=== PATIENT | male | born 1970 | race Caucasian/White ===

== ENCOUNTER 2016-11-22 13:52 | Emergency (ER) | payer OTHER ==
[~2016-11-22] VITALS: Ht 185.4 cm; Wt 96.6 kg
[~2016-11-22 13:52] MED LIST: ASPI-807 PO; DIAZ10TA4 PO; FENO145T PO; LOVA40TA2 PO; METH10SO PO; MONT10TA22 PO; NIFE30TA26 PO
--- NOTE | 2016-11-22 14:17 | NUR ---
Pt groin pain x 2 weeks, unknown etiology. Gowned pt. Comfort measures. Awaiting md order
--- NOTE | 2016-11-22 14:33 | NUR ---
PT TAKEN TO CT VIA WC
--- NOTE | 2016-11-22 15:44 | NUR ---
Patient discharged to home in stable condition. Written and verbal after care instructions given. Patient verbalizes understanding of instruction.
[2016-11-22 15:45] VITALS: BP 145/83
== END 2016-11-22 15:45 | disposition home or self-care (01) ==
LOC: ER 13:54
DX: R59.1 Generalized enlarged lymph nodes (principal); R10.30 Lower abdominal pain, unspecified; I10 Essential (primary) hypertension; J45.909 Unspecified asthma, uncomplicated; F17.200 Nicotine dependence, unspecified, uncomplicated; Z87.442 Personal history of urinary calculi; Z79.82 Long term (current) use of aspirin; Z98.1 Arthrodesis status
CPT/HCPCS: 72192; 99284; A4606; Z7610

== ENCOUNTER 2016-11-30 13:33 | Emergency (ER) | payer OTHER ==
[~2016-11-30] VITALS: Ht 185.4 cm; Wt 95.3 kg
--- NOTE | 2016-11-30 13:50 | NUR ---
CT of the groin done last week showing: IMPRESSION: 1. There are bilateral inguinal lymph nodes but no evidence of an inguinal hernia. There is some stranding as that there is a suggestion of mild stranding in the fat adjacent to the lymph nodes in the right mid inguinal canals but no evidence of a inguinal hernia. A mild lymphadenitis/panniculitis could be considered. No inguinal hernia is identified. 2. Status post posterior spinal fusion with bilateral laminectomies at L5 and S1. 3. Constipation. 4. Atherosclerotic vascular disease. RPTAT:AAJJ
[2016-11-30 14:32] LABS: BASOPHILS # (AUTO) 0.1 /CMM (0.0-0.2); BASOPHILS % (AUTO) 0.8 % (0.0-2.0); EOSINOPHILS # (AUTO) 0.1 /CMM (0.0-0.7); EOSINOPHILS % (AUTO) 1.6 % (0.0-6.0); HEMATOCRIT 43 % (39-51); HEMOGLOBIN 14.3 g/dL (13.5-17.5); LYMPHOCYTES % (AUTO) 35.8 % (20.0-44.0); MEAN CORPUSCULAR HEMOGLOBIN 28 PG (26.0-33.0); MEAN CORPUSCULAR HGB CONC 33 g/dl (31.0-36.0); MEAN CORPUSCULAR VOLUME 85 fL (80-96); MONOCYTES # (AUTO) 0.8 /CMM (0.1-1.30); MONOCYTES % (AUTO) 9.5 % (2.0-12.0); NEUTROPHILS # (AUTO) 4.5 /CMM (1.8-8.9); NEUTROPHILS % (AUTO) 52.3 % (43.0-81.0); PLATELET COUNT (AUTO) 366 /CMM (150-450); RDW COEFFICIENT OF VARIATION 12.2 (11.5-15.0); RED BLOOD CELL COUNT(AUTO) 5.05 MIL/uL (4.5-6.0); WHITE BLOOD COUNT (AUTO) 8.5 K/uL (4.3-11.0)
[2016-11-30 14:47] LABS: ALBUMIN 3.8 g/dL (3.4-5.0); BILIRUBIN,DIRECT 0.1 mg/dL (0.0-0.2); BILIRUBIN,TOTAL 0.3 mg/dL (0.2-1.0); CALCIUM, SERUM 9.3 mg/dL (8.5-10.1); CREATININE 1.2 mg/dL (0.6-1.3); POTASSIUM 4.3 mmol/L (3.5-5.1)
[2016-11-30 14:58] LABS: APPEARANCE,URINE Slightly Cloudy (CLEAR); BILIRUBIN,URINE SMALL (NEGATIVE); BLOOD, URINE Negative Ery/uL (NEGATIVE); COLOR,URINE Dark (YELLOW); KETONES,URINE Trace (NEGATIVE); LEUKOCYTE ESTERASE ,URINE Negative (NEGATIVE); NITRITE, URINE Negative (NEGATIVE); PH,URINE 5.5 (5.0-8.0); PROTEIN,URINE Negative (NEGATIVE); UGLUCOSE Negative (NEGATIVE); UROBILINOGEN,URINE 0.2 EU/dL (0.2)
[2016-11-30 15:04] LABS: BACTERIA,URINE None seen /HPF (None Seen); RBC,URINE NONE SEEN /HPF (0-2); SQUAMOUS EPITHELIAL CELL,UR Rare /HPF (None Seen); WBC,URINE 0-2 /HPF (0-3)
[2016-11-30 15:07] LABS: TOTAL PROTEIN, SERUM 7.7 g/dL (6.4-8.2)
--- NOTE | 2016-11-30 16:40 | NUR ---
Patient discharged to home in stable condition. Written and verbal after care instructions given. Patient verbalizes understanding of instruction.
[2016-11-30 16:42] VITALS: BP 140/80
== END 2016-11-30 16:43 | disposition home or self-care (01) ==
LOC: ER 13:34
DX: R59.1 Generalized enlarged lymph nodes (principal); M25.551 Pain in right hip; I10 Essential (primary) hypertension; J45.909 Unspecified asthma, uncomplicated; Z79.82 Long term (current) use of aspirin; G89.29 Other chronic pain; F17.200 Nicotine dependence, unspecified, uncomplicated; Z98.890 Other specified postprocedural states; Z87.442 Personal history of urinary calculi
CPT/HCPCS: 36415; 71010; 80048; 80076; 81001; 85025; 99285; 99406; A4606; Z7610; 81000-TC

== ENCOUNTER 2020-04-23 15:20 | Emergency (ER) | payer OTHER ==
[~2020-04-23] VITALS: Ht 185.4 cm; Wt 94.3 kg
[2020-04-23 15:20] VITALS: BP 129/82
--- NOTE | 2020-04-23 16:04 | NUR ---
RAPID STREP DONE & SENT TO LAB.
== END 2020-04-23 17:00 | disposition home or self-care (01) ==
LOC: ER 15:25
DX: J02.9 Acute pharyngitis, unspecified (principal); I10 Essential (primary) hypertension; J45.909 Unspecified asthma, uncomplicated; G89.29 Other chronic pain; M54.9 Dorsalgia, unspecified; J34.89 Other specified disorders of nose and nasal sinuses; Z87.442 Personal history of urinary calculi; Z90.89 Acquired absence of other organs; Z98.890 Other specified postprocedural states; Z79.899 Other long term (current) drug therapy; Z79.82 Long term (current) use of aspirin
CPT/HCPCS: 86403-TC; 87070-TC

== ENCOUNTER 2021-05-21 13:20 | Emergency (ER) | payer OTHER ==
[~2021-05-21] VITALS: Ht 185.4 cm; Wt 72.6 kg
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
[2021-05-21] MEDS ORDERED: ETOMIDATE 2 MG/ML VIAL IV ONE ×2 (13:24→15:30)
[2021-05-21] MEDS ORDERED: SUCCINYLCHOLINE CHLORIDE 20 MG/ML VIAL IV ONE ×2 (13:24→15:30)
[2021-05-21] MEDS ORDERED: NALOXONE PREFILLED SYRINGE 2 MG/2 ML SYRINGE ONE (13:41)
--- NOTE | 2021-05-21 13:45 | NUR ---
RAC #18G S/L & LAC #18G S/L BLOOD COLLECTED AND GIVEN TO LAB
--- NOTE | 2021-05-21 13:48 | NUR ---
F/C 16 INSERTED WITH YELLOW URINE RETURN; PATENT AND INTACT. URINE COLLECTED AND SENT TO LAB
[2021-05-21] MEDS ORDERED: ONDANSETRON HCL/PF 4 MG/2 ML VIAL ONE (13:51)
--- NOTE | 2021-05-21 14:00 | NUR ---
Olga Lidia castro in EDM - 05/21/21 at 1646 by REBECCA PER VERBAL ORDERS FROM LOLA UMANZOR ADMINISTERED: 1456 ATENODINE 10MG 1456 SUCCINATED 140MG LOLA UMANZOR INTUBATED PT 6CM 27 AT LIP. PT TOLERATED PROCEDURE WELL.
--- NOTE | 2021-05-21 14:00 | NUR ---
PT INTUBATED NOEMI DAVILA MD WITH 6.0 ETT; BILATERAL B/S NOTED. POSITIVE COLOR CHANGE ON CAPNOMETER. PATIENT PLACED ON MECHANICAL VENT. SETTINGS PER MD. ALARMS VERIFIED AND AUDIBLE. AMBU BAG AT [facility].
--- NOTE | 2021-05-21 14:00 | NUR ---
PER VERBAL ORDERS FROM LOLA UMANZOR ADMINISTERED: 1456 ETOMIDATE 10MG 1456 SUCCYLCHOLINE CHLORIDE 140MG LOLA UMANZOR INTUBATED PT 6CM 27 AT LIP. PT TOLERATED PROCEDURE WELL.
--- NOTE | 2021-05-21 14:00 | NUR ---
RT NOTE- PATIENT ORALLY INTUBATED BY WITH 6.0 ETT SECURED AT 25 CM MID LIP LINE. BILATERAL B/S NOTED. POSITIVE COLOR CHANGE ON CAPNOMETER. PATIENT PLACED ON MECHANICAL VENT. SETTINGS PER MD. ALARMS VERIFIED AND AUDIBLE. AMBU BAG AT [facility].
--- NOTE | 2021-05-21 14:04 | NUR ---
6.0 ETT ADVANCED FROM 25 CM TO 27 CM MID LIP LINE PER .
--- NOTE | 2021-05-21 14:05 | NUR ---
LOADING MACHINE ADJUSTER AT BEDSIDE FOR POST INTUBATION XRAY.
--- NOTE | 2021-05-21 14:06 | NUR ---
INTUBATION PLACEMENT CONFIRMED VIA XRAY; LOLA UMANZOR AWARE. PT TOLERATING VENT SETTINGS AT SPO2 99% : PEEP 5 TV 500 FIO2 100%
[2021-05-21] MEDS: PROPOFOL 100 ML IV PRN ×7 (14:10→18:55)
[2021-05-21] MEDS ORDERED: PROPOFOL 100 ML ONE ×3 (14:11→20:34)
[2021-05-21] MEDS ORDERED: LINA145C PO (14:26)
[2021-05-21] MEDS ORDERED: ONDANSETRON HCL/PF - ER 4 MG/2 ML VIAL IV ONE (14:30)
[2021-05-21] MEDS ORDERED: NALOXONE PREFILLED SYRINGE 2 MG/2 ML SYRINGE IV ONE (14:30)
--- NOTE | 2021-05-21 15:12 | NUR ---
COVID ANTIGEN SWAB COLLECTED AND SENT TO LAB
[2021-05-21 15:17] LABS: MEAN CORPUSCULAR HGB CONC 31 g/dl (31.0-36.0); MONOCYTES # (AUTO) 1.4 K/uL (0.1-1.30)
[2021-05-21 15:25] LABS: CREATININE 0.9 mg/dL (0.6-1.3); POTASSIUM 4.5 mmol/L (3.5-5.1)
[2021-05-21 15:28] LABS: BASOPHILS # (AUTO) 0.1 K/uL (0.0-0.2); BASOPHILS % (AUTO) 0.4 % (0.0-2.0); HEMATOCRIT 46 % (39-51); HEMOGLOBIN 14.5 g/dL (13.5-17.5); LYMPHOCYTES # (AUTO) 2.2 K/uL (0.8-4.8); LYMPHOCYTES % (AUTO) 9.3 % (20.0-44.0); MEAN CORPUSCULAR VOLUME 85 fL (80-96); MONOCYTES % (AUTO) 6.2 % (2.0-12.0); NEUTROPHILS # (AUTO) 19.6 K/uL (1.8-8.9); NEUTROPHILS % (AUTO) 84.1 % (43.0-81.0); PLATELET COUNT (AUTO) 343 K/uL (150-450); RED BLOOD CELL COUNT(AUTO) 5.45 MIL/uL (4.5-6.0); WHITE BLOOD COUNT (AUTO) 23.3 K/uL (4.3-11.0)
[2021-05-21 15:30] LABS: ALBUMIN 3.8 g/dL (3.4-5.0); BILIRUBIN,DIRECT 0.1 mg/dL (0.0-0.2); BILIRUBIN,TOTAL 0.2 mg/dL (0.2-1.0); TOTAL PROTEIN, SERUM 8.3 g/dL (6.4-8.2)
--- NOTE | 2021-05-21 15:50 | NUR ---
LOLA UMANZOR GAVE VERBAL ORDER FOR NGT. PLACED 18FR NGT TO R NARE AT 75CM. AUSCULTATION AND ASPIRATION POSITIVE PLACEMENT CHECK. BROWN OUTPUT NOTED. ORDERED KUB XRAY FOR PLACEMENT
[2021-05-21] MEDS ORDERED: PIPERACILLIN /TAZOBACTAM 3.375 G in IV D5W 50 ML IV ONE (16:00)
--- NOTE | 2021-05-21 16:03 | NUR ---
ABG RESULTED. RT CHANGED VENT SETTINGS FROM FIO2 100% TO 85%. PT TOLERATING WELL AT 100%. DARIAN UMANZOR AWARE
[2021-05-21 16:04] LABS: ABG BASE EXCESS 5.7 mmol/L; ABG PCO2 41.2 mmHg (35.0-45.0); ABG PH 7.476 (7.350-7.450); ABG PO2 189.9 mmHg (75.0-100.0); COHb 2.7 % (0.5-1.5); MetHb 0.4 % (0.0-1.5); O2Hb 96.2 % (94.0-97.0); PEEP,BG 5 cm H2O; SITE, ABG Right Radial; VT, ABG 500 mL
--- NOTE | 2021-05-21 16:05 | NUR ---
SCHOOL CUSTODIAN AT PT'S BEDSIDE
[2021-05-21] MEDS ORDERED: IOHEXOL-300 100 ML VIAL IV ONE (16:13)
[2021-05-21] MEDS ORDERED: IV NS 0.9% 250 ML IV ONE (16:14)
[2021-05-21] MEDS ORDERED: CT SWABBABLE VALVE TRANS SET 1 EA INFUS.SET MC ONE (16:14)
--- NOTE | 2021-05-21 16:40 | NUR ---
PT TAKEN TO CT VIA ACLS PROTOCOL WITH RT. VSS
--- NOTE | 2021-05-21 17:30 | NUR ---
Per XRAY of ABD "Incidental coil appearance of the nasogastric tube within the oropharynx" DC'd NGT; pt tolerated well
--- NOTE | 2021-05-21 18:10 | NUR ---
CALLED [facility] AND FAXED FACE SHEET AND IMAGING RESULTS TO [phone]
--- NOTE | 2021-05-21 18:21 | NUR ---
NATHANIEL CALLED AND WAS NOTIFIED THAT THERE IS NO BEDS AVAILABLE.
--- NOTE | 2021-05-21 18:33 | NUR ---
faxed face sheet to [facility]
--- NOTE | 2021-05-21 19:54 | NUR ---
JOYCE ARRIAZA [facility] CALLED FOR HIGHER LEVEL OF CARE. FACESHEET AND CLINICALS FAXED.
--- NOTE | 2021-05-21 20:03 | NUR ---
Olga Lidia castro in EDM - 05/21/21 at 2028 by REBECCA FACE SHEET AND COVID RESULT FAXED TO [facility]. PHONE FAX
--- NOTE | 2021-05-21 20:23 | NUR ---
ABG DONE; VENT SETTINGS ON FIO2 80%
--- NOTE | 2021-05-21 20:30 | NUR ---
RT CHANGED VENT SETTINGS FROM FIO2 85% TO 60%. PT TOLERATING WELL AT 97%. SKIN DRY, WARM, AND COLOR WNL. PT COMFORTABLE AT THIS TIME. WILL CONTINUE TO MONITOR SETTINGS AND PT.
--- NOTE | 2021-05-21 20:30 | NUR ---
fio2 decreased due to increased spo2 Addendum: 05/21/21 at 2049 by MELYSSA BOLANOS Amended: Links added.
--- NOTE | 2021-05-21 21:02 | NUR ---
[facility] CALLED, NO SEWING MACHINE OPERATOR PLASTIC ZIPPER ENT.
[2021-05-21] MEDS ORDERED: PIPERACILLIN /TAZOBACTAM 3.375 G VIAL IV ONE (22:57)
[2021-05-21] MEDS: PIPERACILLIN /TAZOBACTAM 3.375 G in IV D5W 50 ML IV SCH (23:14)
[2021-05-22] MEDS ORDERED: PIPERACILLIN /TAZOBACTAM 3.375 G VIAL IV ONE (05:16)
[2021-05-22] MEDS: PIPERACILLIN /TAZOBACTAM 3.375 G in IV D5W 50 ML IV SCH ×3 (06:00→19:00)
--- NOTE | 2021-05-22 06:16 | NUR ---
WILY PICKED UP CD OF IMAGES TO SEND TO [facility] [place].
[2021-05-22] MEDS ORDERED: PROPOFOL 100 ML ONE ×4 (07:21→20:39)
--- NOTE | 2021-05-22 07:35 | NUR ---
THE PATIENT IS RECEIVED IN ER BED #5. INTUBATED AND TOLERATING VENT SETTINGS WELL. PATTON CATH IN PLACE. WILL CONTINUE TO MONITOR THE PATIENT.
--- NOTE | 2021-05-22 07:35 | NUR ---
PROPOFOL INFUSING AT 35MCG/KG/MIN
--- NOTE | 2021-05-22 10:01 | NUR ---
[facility] DECLINED PT ADMISSION.
--- NOTE | 2021-05-22 10:08 | NUR ---
[facility] NOTIFIED ABOUT THE CASE, THEY HAVE NO EENT ON STAFF OR SMOKING PIPES CLEANER.
--- NOTE | 2021-05-22 10:16 | NUR ---
DR. ALCALA SPEAKING TO [facility].
--- NOTE | 2021-05-22 10:19 | NUR ---
DR. ALCALA SPEAKING TO DR. WICK FROM [facility] ON THE PHONE.
[2021-05-22] MEDS ORDERED: IV D5/0.45 NACL 1,000 ML IV ONE (10:30)
[2021-05-22] MEDS ORDERED: PANTOPRAZOLE 40 MG VIAL IV ONE (10:30)
--- NOTE | 2021-05-22 10:40 | NUR ---
REFFERED PATIENT TO [facility]. SPOKE TO DARELL AND FAXED OVER FACESHEET AND CLINICALS.
--- NOTE | 2021-05-22 10:40 | NUR ---
IPC APPLIED TO PT
[2021-05-22] MEDS ORDERED: NORMAL SALINE FLUSH 10 ML SYR ONE (10:44)
[2021-05-22] MEDS ORDERED: PANTOPRAZOLE 40 MG VIAL ONE (10:44)
--- NOTE | 2021-05-22 11:25 | NUR ---
CALLED [facility] BACK. CONFIRMED RECIEVING PACKET.
--- NOTE | 2021-05-22 12:27 | NUR ---
[facility] IS AT [facility].
--- NOTE | 2021-05-22 12:34 | NUR ---
PT TOLERATING PROPOFOL AT 40MCG/KG/MIN; SEDATED AND KEPT COMFORABLE. SCD TO BLE. TOLERATING VENT SETTINGS FIO2 40% AT 99%
--- NOTE | 2021-05-22 12:50 | NUR ---
FAXED PERTINENT INFO TO [facility].
--- NOTE | 2021-05-22 13:07 | NUR ---
PT ON WAITLIST ON ICU AND WAITING ON FINANCIAL CLEARANCE. [phone]
--- NOTE | 2021-05-22 14:52 | NUR ---
C CALLED PT ACCEPTED UNDER DR. QUIROZ, VENKAT WILL CALL BACK WITH BED PER ERAN.
--- NOTE | 2021-05-22 15:37 | NUR ---
DR. QUIROZ FROM [facility] SPEAKING WITH DR. ALCALA.
--- NOTE | 2021-05-22 15:54 | NUR ---
COLTON FROM [facility] CALLED PLEASE SEND CD WITH PATIENT.
--- NOTE | 2021-05-22 16:51 | NUR ---
[facility] CALLED NO RESOURCES AVAILABLE [phone]
--- NOTE | 2021-05-22 16:55 | NUR ---
CALLED [facility] NO ANSWER
--- NOTE | 2021-05-22 17:19 | NUR ---
CALLED [facility] [id number] [phone] FOR TRANSPORTATION. SPOKE WITH [facility] REF #[id number]
[2021-05-22 18:03] VITALS: BP 129/81
--- NOTE | 2021-05-22 18:10 | NUR ---
CALLED [facility] [phone] FOR UPDATE LEFT MSG.
--- NOTE | 2021-05-22 18:23 | NUR ---
PT ACCEPTED AT [facility]. [address] [place] [id number] SEND PATIENT 2200 ONWARD. GOING TO A WEST, ROOM 8319. NUMBER FO REPORT,
--- NOTE | 2021-05-22 18:31 | NUR ---
CALLED [facility] [id number] [phone] FOR TRANSPORTATION. SPOKE WITH GABY REF #[id number] UPDATED DESTINATION INFORMATION
--- NOTE | 2021-05-22 18:44 | NUR ---
[facility] WILL TRANPORT AT 2200 PER GABY AT [id number]
--- NOTE | 2021-05-22 19:50 | NUR ---
PT TOLERATING VENT SETTINGS WELL: PEEP 0 AC 20 VT 500 FIO2 40% ON PROPOFOL 45MCG/KG/ML. PT SEDATED AND KEPT COMFORTABLE 1000ML URINE OUTPUT.
--- NOTE | 2021-05-22 20:27 | NUR ---
REPORT GIVEN TO HAYDEN RUBI OF [facility]
--- NOTE | 2021-05-22 20:41 | NUR ---
REPORT GIVEN TO KELSY TORIBIO OF [facility] FOR [facility]. PT TO TRANSFER TO [facility] VIA ACLS PROTOCOL
== END 2021-05-22 21:15 | disposition short-term general hospital (02) ==
LOC: ER 13:23
DX: J96.01 Acute respiratory failure with hypoxia (principal); J39.1 Other abscess of pharynx; F11.90 Opioid use, unspecified, uncomplicated; J45.909 Unspecified asthma, uncomplicated; I10 Essential (primary) hypertension; G89.29 Other chronic pain; M54.9 Dorsalgia, unspecified; Z98.1 Arthrodesis status; F17.200 Nicotine dependence, unspecified, uncomplicated; D72.829 Elevated white blood cell count, unspecified; R41.82 Altered mental status, unspecified; Z20.822 Contact with and (suspected) exposure to COVID-19
CPT/HCPCS: 31500; 36415; 36600; 43752; 70491; 71045; 74018; 80048; 80076; 82803; 83605 ×2; 85025; 85730; 87040 ×2; 87081; 87426; 93005; 96361; 96365; 96366 ×2; 96375 ×2; 99285; A4216; C9113; C9803; J0330; J2310; J2405; J2543 ×3; J3490 ×10; J7030 ×2; J7050; J7060 ×2; Q9967

== ENCOUNTER 2021-09-04 04:08 | Emergency (ER) | payer OTHER ==
[~2021-09-04] VITALS: Ht 185.4 cm; Wt 74.8 kg
[~2021-09-04 04:08] MED LIST changes: +LINA145C PO; -METH10SO PO; -NIFE30TA26 PO
--- NOTE | 2021-09-04 04:35 | NUR ---
TO ER BED 7. BIBS C/O "PAIN IN THE NECK, FEELS LIKE IM NOT GETTING ENOUGH AIR". CONNECTED TO MONITOR. O2 SAT 100 AND NO RESPIRATORY DISTRESS NOTED. AWAITNG MD CHIU
[2021-09-04 04:43] VITALS: BP 113/65
--- NOTE | 2021-09-04 04:44 | NUR ---
PT TAKEN FOR CT SCAN
--- NOTE | 2021-09-04 06:06 | NUR ---
PT ELOPED, NOT NOTED IN THE ROOM. NO IV LINE. MADE AWARE
== END 2021-09-04 06:09 | disposition left against medical advice (07) ==
LOC: ER 04:18
DX: R06.02 Shortness of breath (principal); F41.9 Anxiety disorder, unspecified; I10 Essential (primary) hypertension; J45.909 Unspecified asthma, uncomplicated; G89.29 Other chronic pain; F17.200 Nicotine dependence, unspecified, uncomplicated; Z90.89 Acquired absence of other organs; Z98.890 Other specified postprocedural states; Z79.899 Other long term (current) drug therapy; Z79.82 Long term (current) use of aspirin
CPT/HCPCS: 70490-TC; 71045-TC

== ENCOUNTER 2021-11-01 02:50 | Emergency (ER) | payer OTHER ==
[~2021-11-01] VITALS: Ht 185.4 cm; Wt 79.4 kg
[2021-11-01 03:05] VITALS: BP 130/75
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
--- NOTE | 2021-11-01 03:16 | NUR ---
DR. TESSY UMANZOR AT PT'S BEDSIDE
[2021-11-01] MEDS ORDERED: oxyCODONE/APAP (5/325 MG) 1 UDTAB TABLET ONE (03:42)
[2021-11-01] MEDS ORDERED: oxyCODONE/APAP (5/325 MG) 1 UDTAB TABLET PO ONE (04:00)
[2021-11-01] MEDS ORDERED: OXYC5CAP18 PO (04:10)
== END 2021-11-01 04:16 | disposition home or self-care (01) ==
LOC: ER 02:51
DX: M25.511 Pain in right shoulder (principal); M25.521 Pain in right elbow; M25.531 Pain in right wrist; I10 Essential (primary) hypertension; J45.909 Unspecified asthma, uncomplicated; G89.29 Other chronic pain; Z87.442 Personal history of urinary calculi; Z90.89 Acquired absence of other organs; Z79.899 Other long term (current) drug therapy
CPT/HCPCS: 73030-TC; 73080-TC; 73110

== ENCOUNTER 2022-01-20 08:30 | Emergency (ER) | payer OTHER ==
[~2022-01-20] VITALS: Ht 185.4 cm; Wt 79.4 kg
[~2022-01-20 08:30] MED LIST changes: +OXYC5CAP18 PO
--- NOTE | 2022-01-20 08:49 | NUR ---
To ER bed 9, requesting g tube replacement, dislodge last night while sleeping, aaox3, breathing even and non labored, awaiting md khoury
[2022-01-20] MEDS ORDERED: oxyCODONE/APAP (5/325 MG) 1 UDTAB TABLET PO ONE (09:00)
[2022-01-20] MEDS ORDERED: IBUPROFEN 600 MG TABLET PO ONE (09:00)
[2022-01-20] MEDS ORDERED: IBUPROFEN 600 MG TABLET ONE (09:04)
[2022-01-20] MEDS ORDERED: oxyCODONE/APAP (5/325 MG) 1 UDTAB TABLET ONE (09:04)
[2022-01-20] MEDS ORDERED: DIATR MEGLU/DIATRIZOATE SODIUM 30 ML BOTTLE (GASTROGRAPHIN) PO ONE (09:30)
[2022-01-20] MEDS ORDERED: DIATR MEGLU/DIATRIZOATE SODIUM 30 ML BOTTLE (GASTROGRAPHIN) ONE (09:42)
[2022-01-20] MEDS ORDERED: OXYC-128 PO ×3 (10:24→10:53)
[2022-01-20] MEDS ORDERED: CEPH500C2 PO (10:24)
[2022-01-20] MEDS ORDERED: CEPH500T PO ×2 (10:45→10:53)
[2022-01-20 10:57] VITALS: BP 154/86
--- NOTE | 2022-01-20 10:57 | NUR ---
Patient discharged to home in stable condition. Written and verbal after care instructions given. Patient verbalizes understanding of instruction.
== END 2022-01-20 10:57 | disposition home or self-care (01) ==
LOC: ER 08:34
DX: K94.23 Gastrostomy malfunction (principal); I10 Essential (primary) hypertension; J45.909 Unspecified asthma, uncomplicated; G89.29 Other chronic pain; F17.200 Nicotine dependence, unspecified, uncomplicated; Z90.89 Acquired absence of other organs; Z98.890 Other specified postprocedural states; Z79.899 Other long term (current) drug therapy; Z79.82 Long term (current) use of aspirin
CPT/HCPCS: 99284; 43762; 74018; Q9963 ×2

== ENCOUNTER 2022-01-23 08:13 | Emergency (ER) | payer OTHER ==
[~2022-01-23] VITALS: Ht 185.4 cm; Wt 65.8 kg
[~2022-01-23 08:13] MED LIST changes: +CEPH500T PO; +OXYC-128 PO
--- NOTE | 2022-01-23 08:23 | NUR ---
DR POLANCO AT BEDSIDE FOR EVAL
--- NOTE | 2022-01-23 08:25 | NUR ---
BIBRA FOR C/O ABDOMINAL PAIN 04/04, N/V/D/ X4 DAYS. IN ROOM AIR AND DENIES SOB. RESPIRATION REGULAR AND UNLABORED. WILL CONTINUE TO MONITOR THE PATIENT.
[2022-01-23] MEDS ORDERED: IV NS 0.9% 1,000 ML BAG IV ONE (08:30)
[2022-01-23] MEDS ORDERED: HYDROMORPHONE INJ 2 MG/ML DISP.SYRIN IV ONE (08:30)
[2022-01-23] MEDS ORDERED: ONDANSETRON HCL/PF 4 MG/2 ML VIAL IVP ONE (08:30)
--- NOTE | 2022-01-23 08:31 | NUR ---
PT TAKEN TO RADIOLOGY
[2022-01-23] MEDS ORDERED: HYDROMORPHONE 1 MG/1 ML DISP.SYRIN ONE (08:33)
[2022-01-23] MEDS ORDERED: ONDANSETRON HCL/PF 4 MG/2 ML VIAL ONE (08:33)
--- NOTE | 2022-01-23 08:48 | NUR ---
PT RETURNED FROM RADIOLOGY
--- NOTE | 2022-01-23 08:55 | NUR ---
IV LINE ESTABLISHED ON LAC #20; BLOOD DRAWN AND SENT TO LAB.
[2022-01-23 09:00] LABS: BASOPHILS # (AUTO) 0.1 K/uL (0.0-0.2); BASOPHILS % (AUTO) 0.5 % (0.0-2.0); HEMATOCRIT 42 % (39-51); HEMOGLOBIN 14.2 g/dL (13.5-17.5); LYMPHOCYTES # (AUTO) 1.3 K/uL (0.8-4.8); LYMPHOCYTES % (AUTO) 13.5 % (20.0-44.0); MEAN CORPUSCULAR HGB CONC 34 g/dl (31.0-36.0); MEAN CORPUSCULAR VOLUME 81 fL (80-96); MONOCYTES # (AUTO) 0.5 K/uL (0.1-1.30); PLATELET COUNT (AUTO) 385 K/uL (150-450); RED BLOOD CELL COUNT(AUTO) 5.17 MIL/uL (4.5-6.0); WHITE BLOOD COUNT (AUTO) 9.8 K/uL (4.3-11.0)
[2022-01-23 09:08] LABS: CALCIUM, SERUM 10.6 mg/dL (8.5-10.1); POTASSIUM 3.2 mmol/L (3.5-5.1)
--- NOTE | 2022-01-23 09:09 | NUR ---
URINE COLLECTED AND SENT TO LAB
[2022-01-23 09:16] LABS: ALBUMIN 4.7 g/dL (3.4-5.0); BILIRUBIN,DIRECT 0.1 mg/dL (0.0-0.2); BILIRUBIN,TOTAL 0.5 mg/dL (0.2-1.0); TOTAL PROTEIN, SERUM 9.2 g/dL (6.4-8.2)
[2022-01-23] MEDS ORDERED: SULF1TAB47 PO (09:44)
[2022-01-23] MEDS ORDERED: ONDA4TAB5 PO (09:44)
[2022-01-23 10:13] LABS: BILIRUBIN,URINE MODERATE (NEGATIVE); COLOR,URINE YELLOW (YELLOW); LEUKOCYTE ESTERASE ,URINE NEGATIVE (NEGATIVE); NITRITE, URINE NEGATIVE (NEGATIVE); PH,URINE 6.5 (5.0-8.0); PROTEIN,URINE 30 mg/dl (NEGATIVE); UGLUCOSE NEGATIVE (NEGATIVE)
[2022-01-23] MEDS ORDERED: SULFAMEHOX/TRIMETH 200-40MG/ 5 ML UDC PO ONE (10:30)
[2022-01-23] MEDS ORDERED: SULFAMEHOX/TRIMETH 200-40MG/ 5 ML UDC ONE (10:35)
[2022-01-23 10:47] LABS: BACTERIA,URINE Rare /HPF (None Seen); MUCUS,URINE Moderate /LPF (None Seen); RBC,URINE 0-2 /HPF (0-2); SQUAMOUS EPITHELIAL CELL,UR Few /HPF (None Seen)
--- NOTE | 2022-01-23 10:50 | NUR ---
TAP CARD GIVEN TO PT BUT PT STATES THAT HE DOES NOT KNOW HOW TO USE THE CARD.
--- NOTE | 2022-01-23 11:00 | NUR ---
PLACED A CALL TO [place], PT'S NEIGHBOR, TO PEDIATRIC ONCOLOGIST PT; LEFT VOICEMAIL.
--- NOTE | 2022-01-23 11:19 | NUR ---
Ride Details Pickup : [address] [place] [address] Pickup In: 8 min Destination: [address] [place] [address] Your [employer]: $15.50 Passenger Name: BELEM WILLIAMSON Confirmation #: [id number] Fleet: [facility] (call [phone] to update or cancel)
--- NOTE | 2022-01-23 11:21 | NUR ---
IV removed. Catheter intact and site benign. Pressure and 4x4 applied to site. No bleeding noted.
[2022-01-23 11:24] VITALS: BP 134/86
--- NOTE | 2022-01-23 11:24 | NUR ---
Patient discharged to home in stable condition. Written and verbal after care instructions given. Patient verbalizes understanding of instruction.
== END 2022-01-23 11:25 | disposition home or self-care (01) ==
LOC: ER 08:19
DX: R10.84 Generalized abdominal pain (principal); R11.2 Nausea with vomiting, unspecified; I10 Essential (primary) hypertension; J45.909 Unspecified asthma, uncomplicated; G89.29 Other chronic pain; F17.200 Nicotine dependence, unspecified, uncomplicated; Z98.890 Other specified postprocedural states; Z79.899 Other long term (current) drug therapy
CPT/HCPCS: 99284; 74176; 96374; 96361; 96375; 85025; 80048; 87086; 83690; 80076; 81001; 36415; J2405; J7030; J1170

== ENCOUNTER 2022-05-12 10:25 | Emergency (ER) | payer OTHER ==
[~2022-05-12] VITALS: Ht 167.6 cm; Wt 63.5 kg
[~2022-05-12 10:25] MED LIST changes: +ONDA4TAB5 PO; +SULF1TAB47 PO
[2022-05-12 10:38] VITALS: BP 141/77
--- NOTE | 2022-05-12 11:00 | NUR ---
DR STILL AT BEDSIDE FOR EVAL
--- NOTE | 2022-05-12 11:30 | NUR ---
Patient eloped from facility in stable condition. ER MD notified.
== END 2022-05-12 11:35 | disposition left against medical advice (07) ==
LOC: ER 10:29
DX: Z43.0 Encounter for attention to tracheostomy (principal); I10 Essential (primary) hypertension; J45.909 Unspecified asthma, uncomplicated; G89.29 Other chronic pain; Z87.442 Personal history of urinary calculi; Z90.89 Acquired absence of other organs; Z79.899 Other long term (current) drug therapy